=== PATIENT | male | born 1950 | race Caucasian/White ===

== ENCOUNTER 2018-02-17 07:11 | Observation (INO) | payer MEDICARE ==
[2018-02-17] MEDS ORDERED: Nitroglycerin 2% Ointment 1 INCH/1 GM Packet ONE (07:23)
[2018-02-17 07:36] LABS: #Basophils 0.1 thou/uL (0.0-0.2); #Eosinphils 0.3 thou/uL (0.0-0.7); #Lymphocytes 2.3 thou/uL (1.20-3.40); #Monocytes 0.4 thou/uL (0.11-0.59); #Neutrophils 2.8 thou/uL (1.40-6.50); %Basophils 1.1 % (0.0-1.0); %Eosinophils 5.5 % (0.0-10.0); %Lymphocytes 38.8 % (21.0-51.0); %Monocytes 6.8 % (0.0-10.0); %Neutrophils 47.9 % (42.0-75.0); Hemoglobin 15.9 g/dL (14.0-18.0); Mean Corpuscular HGB CONC 33.8 g/dL (32.0-36.0); Mean Corpuscular Hemoglobin 32.8 pg (27.0-31.0); Mean Corpuscular Volume 97.1 fL (78.0-98.0); Mean Platelet Volume 7.2 fL (7.4-10.4); Platelet Count 153 thou/uL (130-400); RBC Distribution Width 12.2 % (11.5-14.5); Red Blood Cell (RBC) Count 4.84 mill/uL (4.70-6.10); White Blood Cell (WBC) Count 5.9 thou/uL (4.8-10.8)
--- NOTE | 2018-02-17 07:44 | RAD ---
UPRIGHT PORTABLE CHEST 1 VIEW: HISTORY: A 67-year-old male with a history of chest pain intermittently for 1 week. FINDINGS: Postop midline sternotomy. Monitor leads overlie the chest. Heart size is within normal limits. He aled right rib fractures. No confluent pneumonia, overt edema, or pleural effusion. IMPRESSION: Postop midline sternotomy. Atherosclerosis of the aorta with ectasia. No significant active intrath oracic disease. POS: [facility]
[2018-02-17 07:59] LABS: ALT (SGPT) 26 U/L (8-55); AST (SGOT) 21 U/L (5-34); Albumin 4.2 g/dL (3.4-4.8); Alkaline Phosphatase 76 U/L (40-150); Anion Gap 12 mmol/L (10-20); BUN (Urea Nitrogen) 19 mg/dL (8.4-25.7); Bilirubin, Total 0.6 mg/dL (0.2-1.2); CK (CPK) 114 U/L (30-200); Calc. Creatinine Clearance 0 mL/min (70-130); Calcium 9.2 mg/dL (7.8-10.44); Carbon Dioxide 25 mmol/L (23-31); Chloride 107 mmol/L (98-107); Estimated GFR-MDRD 57; Globulin 3.3 g/dL (2.4-3.5); Glucose 88 mg/dL (80-115); Potassium 4.5 mmol/L (3.5-5.1); Protein, Total 7.5 g/dL (5.8-8.1); Sodium 139 mmol/L (136-145)
[2018-02-17 08:02] LABS: CKMB 1.5 ng/mL (0-6.6); Troponin I Less than 0.010 ng/mL (< 0.028)
--- NOTE | 2018-02-17 09:10 | PDOC.FPRHP ---
- History of Present Illness Chief Complaint: chest pain History of Present Illness: This is a 67 yo M with PMH significant for CABG in 2004 and re-cath in 2009 that was normal, he presented to the ED for chest pain. The chest pain has been intermittent for the past week, localized to various parts of the anterior chest and back. The patient states it is not necessarily sharp and is "not the elephant sitting on my chest type of pressure." He states the pains are 4-5/10. He endorses palpitations off and on the past week and a flushing in his head X2 this past week. He denies SOB. Nothing seems to make the pain better or worse. He also endorses a "horribly hungry" type of pain in the mid-epigastrium. He notes feeling more fatigued the past week. He denies abdominal pain, LLE, subjective fever, NVD. ED Course: ASA, nitro - Allergies/Adverse Reactions Allergies Allergy/AdvReac Type Severity Reaction Status Date / Time No Known Allergies Allergy Unverified 02/17/18 10:23 - History PMHx: HTN, kidney stone, gout PSHx: CABG 2004, cath 2009 - nml, varicocele, hernia repair, appendectomy FHx: father: [place] @ 81, brother: [place] @ 70, mother: HTN Social: 1-2 glasses of wine/week, no tobacco or drug use - Review of Systems General: reports: night sweats (one episode of waking up the past week with sweat), fatigue. denies: fever/chills, weight/appetite/sleep changes Eyes: denies: eye pain, vision changes ENT: denies: nasal congestion, rhinorrhea Respiratory: denies: cough, congestion, shortness of breath, exercise intolerance Cardiovascular: reports: chest pain, palpitation. denies: edema, paroxysmal nocturnal dyspnea, orthopnea Gastrointestinal: denies: nausea, vomiting, diarrhea, constipation, abdominal pain Genitourinary: denies: incontinence, dysuria, polyuria Skin: denies: rashes, lesions, jaundice, itching Musculoskeletal: denies: pain, tenderness, stiffness, swelling Neurological: denies: numbness, syncope, seizure, weakness Psychological: denies: anxiety, depression - Vital signs BP: 141/96 HR: 57 RR: 18 Tmax: 97.7 Pox: 99% on RA Wt: 88.5kg - Physical Exam Constitutional: NAD, awake, alert and oriented, well developed HEENT: normocephalic and atraumatic, PERRLA, EOMI, grossly normal vision, grossly normal hearing, good dention Neck: supple, no LAD, no JVD, no bruits Chest: no-tender to palpation, no lesions Heart: RRR, normal S1/S2, no murmurs/rubs/gallops, pulses present -Heart: trace pitting edema on the left, none on the right Lungs: CTAB, no respiratory distress, good air movement, no rales/rhonchi, no wheezing Abdomen: soft, non-tender, bowel sounds present Musculoskeletal: ROM grossly normal Neurological: no focal deficit, CN II-XII intact Skin: no rash/lesions, capillary refill <2 seconds Heme/Lymphatic: no unusual bruising or bleeding, no purpura, no petechia Psychiatric: normal mood and affect, good judgment and insight FMR H&P: Results - Labs Result Diagrams: 02/17/18 07:21 02/17/18 07:21 Lab results: WBC 5.9 thou/uL (4.8-10.8) 02/17/18 07:21 Hgb 15.9 g/dL (14.0-18.0) 02/17/18 07:21 Hct 47.0 % (42.0-52.0) 02/17/18 07:21 MCV 97.1 fL (78.0-98.0) 02/17/18 07:21 Plt Count 153 thou/uL (130-400) 02/17/18 07:21 Neutrophils % 47.9 % (42.0-75.0) 02/17/18 07:21 Sodium 139 mmol/L (136-145) 02/17/18 07:21 Potassium 4.5 mmol/L (3.5-5.1) 02/17/18 07:21 Chloride 107 mmol/L (98-107) 02/17/18 07:21 Carbon Dioxide 25 mmol/L (23-31) 02/17/18 07:21 BUN 19 mg/dL (8.4-25.7) 02/17/18 07:21 Creatinine 1.25 mg/dL (0.6-1.3) 02/17/18 07:21 Glucose 88 mg/dL (80-115) 02/17/18 07:21 Calcium 9.2 mg/dL (7.8-10.44) 02/17/18 07:21 Total Bilirubin 0.6 mg/dL (0.2-1.2) 02/17/18 07:21 AST 21 U/L (5-34) 02/17/18 07:21 ALT 26 U/L (8-55) 02/17/18 07:21 Alkaline Phosphatase 76 U/L (40-150) 02/17/18 07:21 Creatine Kinase 114 U/L (30-200) 02/17/18 07:21 CK-MB (CK-2) 1.5 ng/mL (0-6.6) 02/17/18 07:21 Serum Total Protein 7.5 g/dL (5.8-8.1) 02/17/18 07:21 Albumin 4.2 g/dL (3.4-4.8) 02/17/18 07:21 - EKG Interpretation EKG: sinus bradycardia, no ST segment elevation - Radiology Interpretation Chest x-ray Additional comment: no cardiopulm abnormalities FMR H&P: A/P - Problem List (1) Chest pain Current Visit: Yes Status: Acute Code(s): R07.9 - CHEST PAIN, UNSPECIFIED (2) Hypertension Current Visit: Yes Status: Acute Code(s): I10 - ESSENTIAL (PRIMARY) HYPERTENSION (3) Gout Current Visit: Yes Status: Acute Code(s): M10.9 - GOUT, UNSPECIFIED (4) Hx of coronary artery bypass graft Current Visit: Yes Status: Acute (5) Kidney stone Current Visit: Yes Status: Acute - Plan This is a 67 yo M being admitted to telemetry for a chest pain work up. Chest pain - Trop neg X 1; will continue to trend - EKG showed sinus bradycardia; will repeat - Will give nitro prn for pain - Will perform NM cardiolite stress today. Will f/u results. HTN - Will continue home meds Gout - Aware. Pt is seeing outside doc for this issue. hx of kidney stone - Pt seeing outside physician for this issue; getting lithotripsy on Mar 07 - Will monitor kidney fxn with AM BMP hx of CABG - Will continue to monitor vitals - chest pain being worked up and will proceed depending on stress results DISPO: likely discharge tomorrow pending stress results CODE: FULL Case discussed with Christie FMR H&P: Upper Level - Pertinent history 67M presents for left sided chest pain chest pain. It has been going on for 1.5 week. It is intermittent, lasting less then 1 minute, sharp, not associated with exertion , not relieved by anything, some radiation to left arm. He has 3v cabg in 2004. He has heart cath at 2009 that made no note of new blockage, per patient recollection. He has a known history of kidney stone, right side, which he has scheduled lithotripsy. He denies flank pain, sob, fever, chills, cough. - Pertinent findings BP 141/96, HR 57, RR 18, Tmax 97.7, 99% on RA, 88.5kg Gen: NAD, awake, grossly oriented. HEENT: Normocephalic, moist mucosal membrane, no apparent jaundice, supple neck CV: RRR with no apparent m/g/r. Sternotomy scar present. Resp: CTAB, non labored Extremeties: Trace edema, likely due to vein graft for cabg. Skin: No obvious lesion Psych: Denies anxiety/depression. Trop: 0.01, CXR no acute changes, - Plan Date/Time: 02/17/18 0906 I, [Ryan Arteaga MD], have evaluated this patient and agree with findings/plan as outlined by events intern resident. Pertinent changes/additions are listed here. 1. Chest Pain, atypical. Plan to obtain stress test due to previous history of cabg. Consider consulting card. 2. HTN: BPP currently at control. Consider adding lisinopril for cardiac issues. 3. Kidney Stone: Does not appear to be flank pain at this time. Plan is to monitor. Treat symptomatically. 4. Gout: Episodic and not in an acute attack. Will monitor. 5. Hx of CABG: Has history of cabg. Will work on optimizing his medical treatment. Statin and delia-i to be considered. 6. HLD: Patient state he had elevated lipid in past but did not tolerated statin due to myalgia like symptom. He took atorvastatin previously. Consider Crestor. Attending Addendum - Attending Addendum Date/Time: 02/17/18 7561 I personally evaluated the patient and discussed the management with Dr. Bui/ Ly. I agree with the History, Examination, Assessment and Plan documented above with any addition or exceptions noted below. Patient with history of CAD s/p CABG here with 1 week of left sided chest pain, pressure and sharp in nature, with occasional palpitations and flushing here for workup. He current describes point pain in the left chest not improved with anything and not worsened by anything. Exam overall benign with the exception of LLE edema trace. Vitals stable. He will be admitted to [facility] for ACS r/o. Trend EKG and enzymes, and will order nuclear stress. Further mgmt per that result. Continue meds for his chronic medical conditions.
[2018-02-17] MEDS ORDERED: Acetaminophen 325 MG TAB PO PRN (09:53)
[2018-02-17] MEDS ORDERED: Ondansetron ODT 4 MG TAB PO PRN (09:53)
[2018-02-17] MEDS ORDERED: Nitroglycerin 0.4 MG TAB (25 Tab Bottle) PO PRN (09:53)
[2018-02-17 11:04] LABS: Cardiac Risk 3.9 (Less than 4.5)
[2018-02-17 11:05] LABS: Troponin I Less than 0.010 ng/mL (< 0.028)
--- NOTE | 2018-02-17 15:52 | NM ---
MYOCARDIAL PERFUSION SCAN: INDICATIONS: Chest pain. TECHNIQUE: The patient was given 9 millicuries technetium sestamibi for rest imaging and 28 millicuries for stre ss imaging. The patient was stressed with exercise according to Jame protocol. The patient obtaine d 86% of maximum age predicted heart rate. The left ventricle was imaged with SPECT imaging with CT attenuation images obtained. FINDINGS: Normal activity is seen throughout the left ventricle on stress and rest images. No evidence of reve rsible ischemia identified. No evidence of wall motion abnormality. Ejection fraction is recorded at 57%. IMPRESSION: No evidence of reversible ischemia identified. POS: [facility]
[2018-02-17 16:01] VITALS: BMI 28.8
[2018-02-17 16:31] VITALS: BP 131/85; TEMP 98.4
[2018-02-18] MEDS ORDERED: Enoxaparin Sodium 40 MG/0.4 ML SYRINGE SC SCH (09:00)
--- NOTE | 2018-02-18 16:27 | DIS ---
DATE OF ADMISSION: 02/17/2018 DATE OF DISCHARGE: 02/17/2018 RESIDENT: Christine Bui M.D. ADMITTING ATTENDING: Michael Soriano M.D. DISCHARGE ATTENDING: Michael Soriano M.D. CONSULTATIONS: None. PROCEDURES: 1. Chest x-ray showed postop midline sternotomy. Atherosclerosis of the aorta with ectasia. No significant active intrathoracic disease. Heart size was normal. No pneumonia, edema or pleural effusion. 2. Nuclear medicine stress test showed no evidence of reversible ischemia. PRIMARY DIAGNOSIS: Atypical chest pain. SECONDARY DIAGNOSES: Hypertension, gout, history of coronary artery bypass graft, kidney stone. DISCHARGE MEDICATIONS: 1. Rosuvastatin calcium (Crestor) 20 mg oral daily. 2. Metoprolol succinate (Toprol-XL) 25 mg oral daily. 3. Aspirin 81 mg oral daily. DISCONTINUED MEDICATIONS: None. HISTORY OF PRESENT ILLNESS AND HOSPITAL COURSE: The patient presented to the ED with persistent chest pain over the past week. The patient has a history of CABG in 2004 and catheterization in 2009 that was normal. His dietetic aide is in [place], [place]. He had not been to see him in about three years. He described the chest pain as intermittent throughout the past week and was different from the pressure-like pain he had had before his CABG. He also endorsed palpitations off and on. Due to the patient's cardiac history, he was admitted for ACS rule out workup. The patient underwent a nuclear medicine stress test that was found to have no reversible ischemia. The patient was then started on a statin upon discharge due to his risk factors and previous cardiac history. The patient remained vitally stable throughout his stay and denied any active chest pain upon discharge. Patient endorsed having a kidney stone that he was going to be getting a lithotripsy performed in March. He did not endorse any pain or complaints from this issue. The patient is going to establish PCP here in [facility] to follow up with. DISPOSITION: Stable. DISCHARGE INSTRUCTIONS: 1. Location: Home. 2. Diet: Heart healthy. 3. Activity: ad jaz. 4. Follow up with PCP within 1-2 weeks. GITA
--- NOTE | 2018-02-22 16:37 | EKG ---
Test Reason : CP Blood Pressure : / mmHG Vent. Rate : 055 BPM Atrial Rate : 055 BPM P-R Int : 146 ms QRS Dur : 090 ms QT Int : 426 ms P-R-T Axes : 009 003 031 degrees QTc Int : 407 ms Sinus bradycardia Otherwise normal ECG Confirmed by HERNAN AGUILAR ([id number]), newspaper editor ALEX ARNOLD ([id number]) on 02/22/2018 4:37:07 PM Referred By: Confirmed By:HERNAN AGUILAR
== END 2018-02-17 17:12 | disposition home or self-care (01) ==
LOC: ERS 07:11 → ERHOLD 08:44 → 2SW 14:23
PROVIDERS: ADMIT Student in an Organized Health Care Education/Training Program; ATTEND Student in an Organized Health Care Education/Training Program
DX: R07.89 Other chest pain (principal); I10 Essential (primary) hypertension; M10.9 Gout, unspecified; Z79.82 Long term (current) use of aspirin; Z95.1 Presence of aortocoronary bypass graft
CPT/HCPCS: 71045; 78452; 80053; 80061; 82550; 82553; 84484 ×2; 85025; 93005; 93017; 94760; 99285; A9500; 36415

== ENCOUNTER 2025-04-01 14:46 | Outpatient (CLI) | payer MEDICARE | END 2025-04-01 14:47 | disposition home or self-care (01) | LOC: SCSRAD 14:46 | PROVIDERS: ATTEND Family Medicine | DX: R31.0 Gross hematuria (principal); Z12.5 Encounter for screening for malignant neoplasm of prostate; B34.9 Viral infection, unspecified; E78.2 Mixed hyperlipidemia; Z79.899 Other long term (current) drug therapy | CPT/HCPCS: 74018; 80053; 80061; 81015; 85025; 87086; G0103; 36415 ==